=== PATIENT | male | born 1940 | race Caucasian/White ===

== ENCOUNTER 2021-05-25 10:48 | Inpatient (IN) | payer OTHER ==
[2021-05-25] VITALS (7 sets, daily range): BP systolic 126–178; BP diastolic 54–70
[~2021-05-25] VITALS: Ht 172.7 cm; Wt 72.6 kg
[2021-05-25] MEDS ORDERED: FLOMAX0.4 MG PO (11:21)
[2021-05-25] MEDS ORDERED: CLOPIDOGREL75 MG PO (11:21)
[2021-05-25] MEDS ORDERED: LISINOPRIL2.5 MG PO (11:21)
[2021-05-25] MEDS ORDERED: ASPIRIN81 MG PO (11:21)
[2021-05-25] MEDS ORDERED: ATORVASTATIN CA40 MG PO (11:21)
[2021-05-25 11:32] LABS: BASOPHILS % 0.4 % (0.0-1.0); EOSINOPHILS % 0.4 % (0.0-6.0); HEMATOCRIT 33.5 % (38.2-49.6); HEMOGLOBIN 10.7 g/dL (14.0-18.0); LYMPHOCYTES # (AUTO) 1.5 (1.0-3.2); LYMPHOCYTES % 29.6 % (18.0-39.1); MEAN CORPUSCULAR HEMOGLOBIN 29.5 pg (28-32); MEAN CORPUSCULAR HGB CONC 31.9 g/dL (31-35); MEAN CORPUSCULAR VOLUME 92.3 fL (81-99); MONOCYTES # (AUTO) 0.4 (0.2-0.8); MONOCYTES % 8.4 % (4.4-11.3); NEUTROPHILS # (AUTO) 3.2 (2.1-6.9); NEUTROPHILS % 60.8 % (38.7-80.0); PLATELET COUNT 250 x10e3/uL (140-360); RED BLOOD COUNT 3.63 x10e6/uL (4.3-5.7); RED CELL DISTRIBUTION WIDTH 13.4 % (11.7-14.4)
[2021-05-25 12:03] LABS: ALBUMIN 3.5 g/dL (3.5-5.0); ANION GAP 11.2 mmol/L (8-16); CALCIUM 8.8 mg/dL (8.4-10.2); CREATININE, SERUM 0.97 mg/dL (0.72-1.25); POTASSIUM 4.2 mmol/L (3.5-5.1)
[2021-05-25 12:06] LABS: INR 0.9; PROTHROMBIN TIME 12.9 seconds (11.9-14.5)
[2021-05-25] MEDS ORDERED: ACETAMINOPHEN 325 MG TAB PO PRN (16:30)
[2021-05-25] MEDS ORDERED: PEG (High)/E-LYTE SOLN 4,000 ML BTL PO ONE (17:30)
[2021-05-25 18:21] LABS: HEMATOCRIT 31.8 % (38.2-49.6); HEMOGLOBIN 10.5 g/dL (14.0-18.0)
[2021-05-26] VITALS (7 sets, daily range): BP systolic 124–156; BP diastolic 58–70
[2021-05-26 06:23] LABS: HEMATOCRIT 29.4 % (38.2-49.6); HEMOGLOBIN 9.7 g/dL (14.0-18.0); MEAN CORPUSCULAR HEMOGLOBIN 29.5 pg (28-32); MEAN CORPUSCULAR VOLUME 89.4 fL (81-99); PLATELET COUNT 228 x10e3/uL (140-360); RED BLOOD COUNT 3.29 x10e6/uL (4.3-5.7); RED CELL DISTRIBUTION WIDTH 13.2 % (11.7-14.4)
[2021-05-26 06:41] LABS: ALBUMIN 3.3 g/dL (3.5-5.0); ANION GAP 12.9 mmol/L (8-16); CALCIUM 8.8 mg/dL (8.4-10.2); CREATININE, SERUM 0.97 mg/dL (0.72-1.25); POTASSIUM 3.9 mmol/L (3.5-5.1)
[2021-05-26 07:54] LABS: LYMPHOCYTES % (MANUAL) 38 % (19-48); MONOCYTES % (MANUAL) 3 % (3.4-9.0); NEUTROPHILS % (MANUAL) 59 % (40-74); NUCLEATED RED BLOOD CELLS 1; PLATELET ESTIMATE ADEQUATE; PLATELET MORPHOLOGY COMMENT NORMAL; RBC MORPHOLOGY COMMENT NORMAL
[2021-05-26] MEDS ORDERED: LISINOPRIL 2.5 MG TAB PO SCH (09:00)
[2021-05-26] MEDS ORDERED: TAMSULOSIN HCL 0.4 MG CAP PO SCH (09:00)
[2021-05-26] MEDS ORDERED: PROPOFOL IV EMULSION 10 MG/ML 20 ML VIAL ONE (13:09)
[2021-05-26] MEDS ORDERED: LIDOCAINE HCL 2% LOCAL INJ 5 ML SDV VIAL INJ ONE (13:09)
[2021-05-26] MEDS ORDERED: FENTANYL CITRATE/PF 100MCG/2 ML INJ ONE (16:33)
== END 2021-05-26 18:27 | disposition home or self-care (01) | DRG 379 ==
LOC: ER 10:52 → ERHOLD 12:16 → MED/SURG2 13:20
PROVIDERS: ADMIT Internal Medicine; ATTEND Internal Medicine
PROC: 0DJD8ZZ Inspection of Lower Intestinal Tract, Via Natural or Artificial Opening Endoscopic (ICD-10-PCS; principal; 2021-05-26 10:31)
DX: K57.31 Diverticulosis of large intestine without perforation or abscess with bleeding (principal); I25.10 Atherosclerotic heart disease of native coronary artery without angina pectoris; E78.5 Hyperlipidemia, unspecified; N40.0 Benign prostatic hyperplasia without lower urinary tract symptoms; Z79.02 Long term (current) use of antithrombotics/antiplatelets; K64.8 Other hemorrhoids; I25.2 Old myocardial infarction; Z87.891 Personal history of nicotine dependence; R00.0 Tachycardia, unspecified
CPT/HCPCS: 36415; 43239; 45378; 80053; 85007; 85014; 85018; 85025; 85027; 85610; 86850; 86900; 88305; 88312; 99284; J2001; J3010; U0002

== ENCOUNTER 2021-06-13 08:46 | Observation (INO) | payer MEDICARE, OTHER ==
[~2021-06-13] VITALS: Ht 325.1 cm; Wt 72.7 kg
[~2021-06-13 08:46] MED LIST: ASPIRIN81 MG PO; ATORVASTATIN CA40 MG PO; CELECOXIB 200 MG CAP ONE; CLOPIDOGREL75 MG PO; DEXAMETHASONE SOD PHOS 10 MG/1 ML VIAL ONE; FLOMAX0.4 MG PO; GABAPENTIN 300 MG CAP ONE; LISINOPRIL2.5 MG PO; ROPIVACAINE 246.25 MG, EPINEPHRINE HCL 1:1000 1ML 0.5 MG, CLONIDINE HCL 0.08 MG, KETORO... INJ ONE; SODIUM CHLORIDE 0.9% 500ML 500 ML ONE; SODIUM CHLORIDE 0.9% 50ML 100 ML ONE
[2021-06-13] MEDS ORDERED: Vancomycin IV 1,000 MG ONE (09:41)
[2021-06-13] MEDS ORDERED: TRANEXAMIC ACID 1,000 MG/10 ML ML ONE (09:41)
[2021-06-13] MEDS ORDERED: ZOLPIDEM TARTRATE 5 MG TAB PO PRN (11:30)
[2021-06-13] MEDS ORDERED: DOCUSATE SODIUM 100 MG CAP PO PRN (11:30)
[2021-06-13] MEDS ORDERED: ONDANSETRON HCL INJ 2MG/ML 2ML 2 MG/ML VIAL IV PRN (11:30)
[2021-06-13] MEDS ORDERED: KETOROLAC TROMETHAMINE 30 MG/ML VIAL IV PRN (11:30)
[2021-06-13] MEDS ORDERED: DIPHENHYDRAMINE HCL INJ 50 MG/ML VIAL IV PRN (11:30)
[2021-06-13] MEDS ORDERED: HYDROCODONE/APAP 7.5MG-325MG 1 EA TAB PO PRN (11:30)
[2021-06-13] MEDS ORDERED: ACETAMINOPHEN 650 MG SUPP PR PRN (11:30)
[2021-06-13] MEDS ORDERED: SODIUM CHLORIDE 0.9% 1000ML 1,000 ML IV SCH (11:30)
[2021-06-13] MEDS ORDERED: HYDROCODONE/APAP 5MG-325MG TAB PO PRN (11:30)
[2021-06-13 12:35] VITALS: BP 144/63
[2021-06-13 12:45] VITALS: BP 144/63
[2021-06-13] MEDS ORDERED: PROPOFOL IV EMULSION 10 MG/ML 20 ML VIAL ONE (12:55)
[2021-06-13] MEDS ORDERED: EPHEDRINE SULFATE INJ 50 MG/ML VIAL ONE (12:55)
[2021-06-13] MEDS ORDERED: POVIDONE IODINE 0.05% 0.05 % ML PO ONE (12:55)
[2021-06-13] MEDS ORDERED: ONDANSETRON HCL INJ 2MG/ML 2ML 2 MG/ML VIAL ONE (12:55)
[2021-06-13] MEDS ORDERED: LIDOCAINE HCL 2% LOCAL INJ 5 ML SDV VIAL INJ ONE (12:55)
[2021-06-13] MEDS ORDERED: SEVOFLURANE INHAL SOLN 250 ML PEN BTL ONE (12:55)
[2021-06-13 13:08] VITALS: BP 144/63
[2021-06-13] MEDS ORDERED: BUPIVACAINE HCL 0.5% INJ 30 ML VIAL INJ ONE (13:18)
[2021-06-13 16:12] VITALS: BP 145/65
[2021-06-13] MEDS ORDERED: FENTANYL CITRATE/PF 100MCG/2 ML INJ ONE (16:45)
[2021-06-13] MEDS ORDERED: ASPIRIN 325 MG TAB PO SCH (17:00)
[2021-06-13] MEDS ORDERED: CELECOXIB 200 MG CAP PO SCH (17:00)
[2021-06-13] MEDS ORDERED: Cefazolin 1 GM in SODIUM CHLORIDE 0.9% 50ML 50 ML IV SCH (18:00)
[2021-06-14] MEDS ORDERED: ACETAMINOPHEN 1000 MG/100 ML IV PRN (11:30)
== END 2021-06-13 17:17 | disposition home health service (06) ==
LOC: OR 08:46 → PACU V 11:27 → IMCU 12:30
PROVIDERS: ADMIT Specialist; ATTEND Specialist
DX: M16.11 Unilateral primary osteoarthritis, right hip (principal); Z20.822 Contact with and (suspected) exposure to COVID-19; Z01.818 Encounter for other preprocedural examination; J44.9 Chronic obstructive pulmonary disease, unspecified; I25.10 Atherosclerotic heart disease of native coronary artery without angina pectoris; Z95.5 Presence of coronary angioplasty implant and graft; M17.11 Unilateral primary osteoarthritis, right knee
CPT/HCPCS: 27130; 71046; 72170; 86850; 86900; 86920; 94799; 97110; 97161; 97530; C1713 ×3; C1776 ×2; G0378; J0171; J0690; J1100; J1885; J2001; J2405; J2704; J2795; J3370; J7040; U0002; J3010

== ENCOUNTER 2022-10-09 07:04 | Inpatient (IN) | payer MEDICARE ==
[2022-10-05 11:13] LABS: BASOPHILS % 0.2 % (0.0-1.0); EOSINOPHILS % 0.4 % (0.0-6.0); HEMATOCRIT 36.1 % (38.2-49.6); HEMOGLOBIN 11.8 g/dL (14.0-18.0); MEAN CORPUSCULAR HEMOGLOBIN 30.9 pg (28-32); MEAN CORPUSCULAR HGB CONC 32.7 g/dL (31-35); MEAN CORPUSCULAR VOLUME 94.5 fL (81-99); MONOCYTES # (AUTO) 0.4 (0.2-0.8); MONOCYTES % 7.6 % (4.4-11.3); NEUTROPHILS # (AUTO) 4.1 (2.1-6.9); NEUTROPHILS % 73.6 % (38.7-80.0); PLATELET COUNT 194 x10e3/uL (140-360); RED BLOOD COUNT 3.82 x10e6/uL (4.3-5.7); RED CELL DISTRIBUTION WIDTH 12.9 % (11.7-14.4)
[~2022-10-09] VITALS: Ht 172.7 cm; Wt 75.3 kg
[~2022-10-09 07:04] MED LIST changes: -CELECOXIB 200 MG CAP ONE; -DEXAMETHASONE SOD PHOS 10 MG/1 ML VIAL ONE; -GABAPENTIN 300 MG CAP ONE; +RAPAFLO8 MG PO; -ROPIVACAINE 246.25 MG, EPINEPHRINE HCL 1:1000 1ML 0.5 MG, CLONIDINE HCL 0.08 MG, KETORO... INJ ONE; -SODIUM CHLORIDE 0.9% 500ML 500 ML ONE; -SODIUM CHLORIDE 0.9% 50ML 100 ML ONE
[2022-10-09] MEDS ORDERED: ROPIVACAINE 246.25 MG, EPINEPHRINE HCL 1:1000 1ML 0.5 MG, CLONIDINE HCL 0.08 MG, KETORO... INJ ONE ×5 (07:30)
[2022-10-09] MEDS ORDERED: GABAPENTIN 300 MG CAP ONE (07:54)
[2022-10-09] MEDS ORDERED: DEXAMETHASONE SOD PHOS 10 MG/1 ML VIAL ONE (07:54)
[2022-10-09] MEDS ORDERED: CELECOXIB 200 MG CAP ONE (07:54)
[2022-10-09] MEDS ORDERED: CEFAZOLIN SODIUM 2 GM ONE (07:55)
[2022-10-09] MEDS ORDERED: ACETAMINOPHEN 1000 MG/100 ML 100 ML IV ONE (08:43)
[2022-10-09] MEDS ORDERED: Vancomycin IV 1,000 MG ONE (08:47)
[2022-10-09] MEDS ORDERED: TRANEXAMIC ACID 20 ML ONE (08:47)
[2022-10-09] MEDS ORDERED: SODIUM CHLORIDE 0.9% 500ML 500 ML ONE (08:47)
[2022-10-09] MEDS ORDERED: SODIUM CHLORIDE 0.9% 250ML 250 ML ONE (09:14)
[2022-10-09] MEDS ORDERED: HYDROCODONE/APAP 5MG-325MG TAB PO PRN (11:00)
[2022-10-09] MEDS ORDERED: HYDROCODONE/APAP 7.5MG-325MG 1 EA TAB PO PRN (11:00)
[2022-10-09] MEDS ORDERED: SODIUM CHLORIDE 0.9% 1000ML 1,000 ML IV SCH (11:00)
[2022-10-09] MEDS ORDERED: DIPHENHYDRAMINE HCL INJ 50 MG/ML VIAL IV PRN (11:00)
[2022-10-09] MEDS ORDERED: ONDANSETRON HCL INJ 2MG/ML 2ML 2 MG/ML VIAL IV PRN (11:00)
[2022-10-09] MEDS ORDERED: ZOLPIDEM TARTRATE 5 MG TAB PO PRN (11:00)
[2022-10-09] MEDS ORDERED: DOCUSATE SODIUM 100 MG CAP PO PRN (11:00)
[2022-10-09] MEDS ORDERED: ACETAMINOPHEN 650 MG SUPP PR PRN (11:00)
[2022-10-09] MEDS ORDERED: SEVOFLURANE INHAL SOLN 250 ML PEN BTL ONE (11:28)
[2022-10-09] MEDS ORDERED: LIDOCAINE HCL 2% LOCAL INJ 5 ML SDV VIAL INJ ONE (11:28)
[2022-10-09] MEDS ORDERED: DEXAMETHASONE SOD PHOS INJ 4 MG/ML SDV ONE (11:28)
[2022-10-09] MEDS ORDERED: EPHEDRINE SULFATE INJ 50 MG/ML VIAL ONE (11:28)
[2022-10-09] MEDS ORDERED: POVIDONE IODINE 0.05% 0.05 % ML PO ONE (11:28)
[2022-10-09] MEDS ORDERED: PROPOFOL IV EMULSION 10 MG/ML 20 ML VIAL ONE (11:28)
[2022-10-09] MEDS ORDERED: Vancomycin IV 1 GM VIAL ONE (11:28)
[2022-10-09] MEDS ORDERED: ONDANSETRON HCL INJ 2MG/ML 2ML 2 MG/ML VIAL ONE (11:28)
[2022-10-09 11:58] VITALS: BP 138/66
[2022-10-09] MEDS ORDERED: ROPIVACAINE 0.5% 5 MG/ML 30 ML SDV ONE (12:17)
[2022-10-09] MEDS ORDERED: FENTANYL CITRATE/PF 100MCG/2 ML INJ ONE (12:26)
[2022-10-09] MEDS ORDERED: MIDAZOLAM HCL 2 MG/2 ML VIAL ONE (12:26)
[2022-10-09 13:50] VITALS: BP 138/66
[2022-10-09] MEDS ORDERED: ACETAMINOPHEN 1000 MG/100 ML IV PRN (14:00)
[2022-10-09] MEDS: Vancomycin IV 1 GM in SODIUM CHLORIDE 0.9% 250ML 250 ML IV SCH (14:51)
[2022-10-09 15:53] VITALS: BP 131/71
[2022-10-09] MEDS: ASPIRIN 325 MG TAB PO SCH (18:04)
[2022-10-09] MEDS: CELECOXIB 100 MG CAP PO SCH (18:04)
[2022-10-09 19:54] VITALS: BP 158/76
[2022-10-09 22:35] VITALS: BP 158/76
[2022-10-10 01:08] VITALS: BP 125/66
[2022-10-10] MEDS: Vancomycin IV 1 GM in SODIUM CHLORIDE 0.9% 250ML 250 ML IV SCH (01:33)
[2022-10-10 05:13] LABS: BASOPHILS % 0.1 % (0.0-1.0); HEMATOCRIT 31.9 % (38.2-49.6); HEMOGLOBIN 10.2 g/dL (14.0-18.0); LYMPHOCYTES # (AUTO) 1.1 (1.0-3.2); LYMPHOCYTES % 10.9 % (18.0-39.1); MEAN CORPUSCULAR HEMOGLOBIN 30.5 pg (28-32); MEAN CORPUSCULAR VOLUME 95.5 fL (81-99); MONOCYTES % 9.3 % (4.4-11.3); NEUTROPHILS # (AUTO) 8.3 (2.1-6.9); NEUTROPHILS % 79.4 % (38.7-80.0); PLATELET COUNT 187 x10e3/uL (140-360); RED BLOOD COUNT 3.34 x10e6/uL (4.3-5.7); RED CELL DISTRIBUTION WIDTH 12.5 % (11.7-14.4)
[2022-10-10 05:16] VITALS: BP 143/68
[2022-10-10 05:28] LABS: ANION GAP 12.1 mmol/L (8-16); CALCIUM 8.7 mg/dL (8.4-10.2); CREATININE, SERUM 1.16 mg/dL (0.72-1.25); POTASSIUM 4.1 mmol/L (3.5-5.1)
[2022-10-10 08:00] VITALS: BP 133/60
[2022-10-10 08:31] VITALS: BP 133/60
[2022-10-10] MEDS: CELECOXIB 100 MG CAP PO SCH (08:48)
[2022-10-10] MEDS: ASPIRIN 325 MG TAB PO SCH (08:48)
[2022-10-10] MEDS ORDERED: ONDANSETRON HCL 4 MG ORAL DISINTEGRATING TAB PO PRN (11:00)
[2022-10-10 11:55] VITALS: BP 131/60
== END 2022-10-10 14:18 | disposition home or self-care (01) | DRG 468 ==
LOC: OR 07:04 → PACU V 11:00 → MED/SURG3 11:58
PROVIDERS: ADMIT Specialist; ATTEND Specialist
PROC: 0SRD069 Replacement of Left Knee Joint with Oxidized Zirconium on Polyethylene Synthetic Substitute, Cemented, Open Approach (ICD-10-PCS; 2022-10-09)
PROC: 0SBD0ZZ Excision of Left Knee Joint, Open Approach (ICD-10-PCS; 2022-10-09)
PROC: 0LX Tendons, Transfer (ICD-10-PCS; 2022-10-09)
PROC: 0SPD0JZ Removal of Synthetic Substitute from Left Knee Joint, Open Approach (ICD-10-PCS; principal; 2022-10-09 08:38)
DX: T84.82XA Fibrosis due to internal orthopedic prosthetic devices, implants and grafts, initial encounter (principal); M24.662 Ankylosis, left knee; I10 Essential (primary) hypertension; Z20.822 Contact with and (suspected) exposure to COVID-19; M16.11 Unilateral primary osteoarthritis, right hip; Z96.641 Presence of right artificial hip joint; Z96.652 Presence of left artificial knee joint; Z79.899 Other long term (current) drug therapy; I25.10 Atherosclerotic heart disease of native coronary artery without angina pectoris; Z95.5 Presence of coronary angioplasty implant and graft
CPT/HCPCS: 0223U; 36415; 71046; 80048; 85025; 86850; 86900; 86920; 94799; C1713; C1776; J0171; J0690; J1100; J1885; J2001; J2250; J2405; J2795; J3370; J7030; J7040; J7050